=== PATIENT | male | born 1990 | race Two or more races ===

== ENCOUNTER 2020-07-02 12:14 | Emergency (ER) | payer MEDICAID ==
[~2020-07-02] VITALS: Ht 170.2 cm; Wt 105.0 kg
--- NOTE | 2020-07-02 12:23 | NUR ---
PATIENT ARRIVES WITH A SORE THROAT SINCE FRIDAY.
[2020-07-02 12:35] VITALS: BP 128/78
== END 2020-07-02 13:07 ==
LOC: ED 13:01
DX: H66.002 Acute suppurative otitis media without spontaneous rupture of ear drum, left ear (principal); J02.0 Streptococcal pharyngitis; R00.0 Tachycardia, unspecified
CPT/HCPCS: 99283